=== PATIENT | female | born 2005 | race Caucasian/White ===

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

== ENCOUNTER 2024-09-29 08:13 | Emergency (ER) | payer BC ==
[~2024-09-29] VITALS: Ht 167.6 cm; Wt 90.0 kg
[~2024-09-29 08:13] MED LIST changes: +KEFLEX500 MG PO; +NEO/POLY/BA1 TOP
[2024-09-29 08:23] VITALS: BP 149/94
[2024-09-29 08:24] VITALS: BP 142/91
[2024-09-29 08:30] VITALS: BP 122/86
[2024-09-29 08:53] LABS: URINE BLOOD DIPSTICK Small (NEGATIVE); URINE GLUCOSE - DIPSTICK Negative (NEGATIVE); URINE KETONE 15 mg/dL (NEGATIVE); URINE LEUK ESTERASE Trace (NEGATIVE); URINE NITRITE - DIPSTICK Negative (Negative); URINE PH 5.5 (4.5-8.0); URINE PROTEIN - DIPSTICK 30 mg/dL (NEG-TRACE); URINE UROBILINOGEN - DIPSTICK 0.2 E.U./dL (0.2)
[2024-09-29 09:00] VITALS: BP 138/85
[2024-09-29 09:00] LABS: URINE COLOR Yellow
[2024-09-29 09:03] LABS: URINE RBC 0-2 RBC/hpf (0-5); URINE SQUAMOUS EPITHELIAL CELL MODERATE EPI/hpf (0-FEW)
[2024-09-29 09:04] LABS: URINE BACTERIA MODERATE hpf; URINE MUCUS FEW hpf (NONE-FEW)
[2024-09-29] MEDS ORDERED: SODIUM CHLORIDE 0.9% 1,000 ML IV ONE (09:15)
[2024-09-29 10:21] LABS: BASO% 0.3 % (0-3); EOS% 0.3 % (0-8); HEMATOCRIT 40.2 % (37.0-47.0); HEMOGLOBIN 13.3 g/dl (12.0-16.0); IMMATURE GRANULOCYTES 0.7 % (0.0-5.0); LYMPH% 26.2 % (15-41); MEAN CORPUSCULAR HGB 28.9 pG CALC (26.0-32.0); MEAN CORPUSCULAR HGB CONC 33.1 g/dL CAL (32.0-36.0); MONO% 11.7 % (2-13); NEUT# 1.81 thou/uL (2.00-7.15); NEUT% 60.8 % (42-76); RED BLOOD COUNT 4.61 mill/uL (4.20-5.60)
[2024-09-29 10:22] LABS: MEAN CELL VOLUME 87.2 fL CALC (80.0-100.0)
[2024-09-29 10:28] LABS: ALBUMIN 4.7 g/dL (3.2-5.0); BILIRUBIN, TOTAL 0.6 mg/dL (0.02-1.3); POTASSIUM 4.2 mmol/l (3.5-5.1); TOTAL PROTEIN 8.3 g/dL (6.3-8.2)
[2024-09-29 10:31] VITALS: BP 131/83
[2024-09-29 10:32] LABS: CREATININE 0.9 mg/dL (0.5-1.0)
[2024-09-29] MEDS ORDERED: MEDDOSEPAK PO (11:13)
[2024-09-29 11:16] VITALS: BP 131/83
[2024-10-01] MEDS ORDERED: MACROBID100 M1 PO (11:31)
== END 2024-09-29 11:18 | disposition home or self-care (01) | DRG 866 ==
LOC: ED 08:13
PROVIDERS: Family Medicine
DX: B34.9 Viral infection, unspecified (principal); Z20.822 Contact with and (suspected) exposure to COVID-19; R82.71 Bacteriuria